=== PATIENT | male | born 1950 | race Caucasian/White ===

== ENCOUNTER 2017-12-18 08:00 | Outpatient (CLI) | payer MEDICARE, OTHER ==
[2017-12-18 13:41] LABS: BASOPHILS % (AUTO) 0.6 %; EOSINOPHILS # (AUTO) 0.2 10^3/uL (0.0-0.7); EOSINOPHILS % (AUTO) 4.2 %; HGB - HEMOGLOBIN 16.6 g/dL (14.0-18.0); LYMPHOCYTES # (AUTO) 1.2 10^3/uL (1.5-3.5); LYMPHOCYTES % (AUTO) 21.3 %; MEAN CORPUSCULAR HEMOGLOBIN 31.4 pg (27.0-31.0); MEAN CORPUSCULAR HGB CONC 33.7 g/dL (32.0-36.0); MEAN CORPUSCULAR VOLUME 93.2 fL (80.0-94.0); MONOCYTES # (AUTO) 0.6 10^3/uL (0.0-1.0); MONOCYTES % (AUTO) 9.7 %; NEUTROPHILS # (AUTO) 3.7 10^3/uL (1.5-6.6); NEUTROPHILS % (AUTO) 64.2 %; PLT - PLATELET COUNT 171 10^3/uL (130-450); RED BLOOD COUNT 5.28 10^6/uL (4.70-6.10); WHITE BLOOD COUNT 5.8 x10^3/uL (4.8-10.8)
[2017-12-18 14:09] LABS: ALBUMIN 4.3 g/dL (3.2-5.5); ALBUMIN/GLOBULIN RATIO 1.8 (1.0-2.2); ALKALINE PHOSPHATASE 80 IU/L (42-121); ALT ALANINE AMINOTRANSFERASE 35 IU/L (10-60); AST ASPARTATE AMINOTRANSFERASE 30 IU/L (10-42); BILIRUBIN,TOTAL 1.4 mg/dL (0.2-1.0); BUN - BLOOD UREA NITROGEN 24 mg/dL (6-20); CALCIUM 9.1 mg/dL (8.5-10.3); CARBON DIOXIDE - CO2 29 mmol/L (21-32); CHLORIDE 104 mmol/L (101-111); CHOL/HDL RATIO 3.6 (<5.0); CHOLESTEROL 171 mg/dL; CREATININE 1.2 mg/dL (0.6-1.2); GFR - MDRD 60 (>89); GLUCOSE 101 mg/dL (70-100); HDL CHOLESTEROL 47 mg/dL; LDL CHOLESTEROL,CALCULATED 98 mg/dL; LDL/HDL RATIO 2.1 (<3.6); SODIUM 138 mmol/L (135-145); TOTAL PROTEIN 6.7 g/dL (6.7-8.2); VLDL CHOLESTEROL 26 mg/dL
[2017-12-19 11:21] LABS: HEPATITIS C ANTIBODY NON-REACTIVE (NON-REACTIVE)
== END 2017-12-18 08:01 | disposition home or self-care (01) ==
LOC: LAB.WCP 08:00
PROVIDERS: ATTEND Family Medicine
DX: I10 Essential (primary) hypertension (principal); Z12.5 Encounter for screening for malignant neoplasm of prostate; E78.5 Hyperlipidemia, unspecified; Z79.899 Other long term (current) drug therapy
CPT/HCPCS: 36415; 80053; 80061; 84443; 85025; 86803; G0103; 83721; 84153

== ENCOUNTER 2018-09-23 10:20 | Outpatient (CLI) | payer MEDICARE, OTHER ==
[2018-09-23 19:00] LABS: BASOPHILS % (AUTO) 0.4 %; EOSINOPHILS # (AUTO) 0.2 10^3/uL (0.0-0.7); EOSINOPHILS % (AUTO) 1.8 %; HGB - HEMOGLOBIN 16.5 g/dL (14.0-18.0); LYMPHOCYTES # (AUTO) 1.6 10^3/uL (1.5-3.5); LYMPHOCYTES % (AUTO) 15.8 %; MEAN CORPUSCULAR HEMOGLOBIN 31.4 pg (27.0-31.0); MEAN CORPUSCULAR HGB CONC 32.6 g/dL (32.0-36.0); MEAN CORPUSCULAR VOLUME 96.4 fL (80.0-94.0); MONOCYTES # (AUTO) 0.7 10^3/uL (0.0-1.0); MONOCYTES % (AUTO) 7.2 %; NEUTROPHILS # (AUTO) 7.6 10^3/uL (1.5-6.6); NEUTROPHILS % (AUTO) 74.8 %; PLT - PLATELET COUNT 197 10^3/uL (130-450); RED BLOOD COUNT 5.26 10^6/uL (4.70-6.10); RED CELL DISTRIBUTION WIDTH 13.2 % (12.0-15.0); WHITE BLOOD COUNT 10.2 x10^3/uL (4.8-10.8)
[2018-09-23 19:18] LABS: ALBUMIN 4.3 g/dL (3.2-5.5); ALBUMIN/GLOBULIN RATIO 1.8 (1.0-2.2); ALKALINE PHOSPHATASE 83 IU/L (42-121); ALT ALANINE AMINOTRANSFERASE 30 IU/L (10-60); AST ASPARTATE AMINOTRANSFERASE 29 IU/L (10-42); BILIRUBIN,TOTAL 1.6 mg/dL (0.2-1.0); BUN - BLOOD UREA NITROGEN 21 mg/dL (6-20); CALCIUM 9.3 mg/dL (8.5-10.3); CARBON DIOXIDE - CO2 29 mmol/L (21-32); CHLORIDE 102 mmol/L (101-111); CHOL/HDL RATIO 3.2 (<5.0); CHOLESTEROL 179 mg/dL; CREATININE 1.2 mg/dL (0.6-1.2); GFR - MDRD 60 (>89); GLUCOSE 96 mg/dL (70-100); HDL CHOLESTEROL 56 mg/dL; LDL CHOLESTEROL,CALCULATED 85 mg/dL; LDL/HDL RATIO 1.5 (<3.6); SODIUM 138 mmol/L (135-145); TOTAL PROTEIN 6.7 g/dL (6.7-8.2); VLDL CHOLESTEROL 38 mg/dL
== END 2018-09-23 10:21 | disposition home or self-care (01) ==
LOC: LAB.WCP 10:20
PROVIDERS: ATTEND Family Medicine
DX: R94.5 Abnormal results of liver function studies (principal); E78.5 Hyperlipidemia, unspecified; Z79.899 Other long term (current) drug therapy
CPT/HCPCS: 36415; 80053; 80061; 83721; 85025

== ENCOUNTER 2018-09-30 11:29 | Outpatient (CLI) | payer MEDICARE, OTHER ==
--- NOTE | 2018-09-30 14:56 | XRAY Report ---
Reason: SHOULDER IMPINGMENT SYNDROME Procedure Date: 09/30/2018 Accession Number: [id number] / [id number] Procedure: WCP - Shoulder 3 View BILAT CPT Code: FULL RESULT: Bilateral Shoulder Radiography EXAM DATE: 09/30/2018 11:44 AM. CLINICAL HISTORY: SHOULDER IMPINGEMENT SYNDROME. COMPARISON: None. TECHNIQUE: 3 views each. FINDINGS: Right: Bones: No fracture or bone lesion. Joints: There are moderate degenerative changes of the acromioclavicular joint with moderate under spurring of the acromioclavicular articulations. There are large collar osteophytes of the humeral head. The glenohumeral joint space is not well imaged. Soft tissues: The visualized hemithorax is unremarkable. No soft tissue swelling. Left: Bones: No fracture or bone lesion. Joints: There are moderate degenerative changes of the acromioclavicular joint with moderate under spurring of the acromioclavicular articulations. There are large collar osteophytes of the humeral head. The clinical humeral joint space is not well imaged. Soft tissues: The visualized hemithorax is unremarkable. No soft tissue swelling. IMPRESSION: 1. Right shoulder moderate to severe glenohumeral osteoarthritis. Moderate acromioclavicular arthrosis. Moderate under spurring of the AC joint articulations may cause impingement symptoms. Correlate clinically. 2. Left shoulder moderate to severe glenohumeral osteoarthritis. Moderate acromioclavicular arthrosis. Moderate under spurring of the AC joint articulations may cause impingement symptoms. Correlate clinically. RADIA
== END 2018-09-30 11:30 | disposition home or self-care (01) ==
LOC: DI.WCP 11:29
PROVIDERS: ATTEND Family Medicine
DX: M19.011 Primary osteoarthritis, right shoulder (principal); M19.012 Primary osteoarthritis, left shoulder

== ENCOUNTER 2018-12-17 12:00 | Outpatient (CLI) | payer MEDICARE, OTHER ==
[2018-12-17] MEDS ORDERED: BUFFERED LIDOCAINE 10 ML SYRINGE ONE (12:52)
[2018-12-17] MEDS ORDERED: IOTHALAMATE MEGLUMINE 50 ML VIAL ONE (12:52)
[2018-12-17] MEDS ORDERED: GADOPENTETATE DIMEGLUMINE 5 ML VIAL IVP ONE (12:52)
[2018-12-17] MEDS ORDERED: IOTHALAMATE MEGLUMINE 50 ML VIAL IVP ONE (16:24)
[2018-12-17] MEDS ORDERED: BUFFERED LIDOCAINE 10 ML SYRINGE IU ONE (16:24)
--- NOTE | 2018-12-18 09:55 | XRAY Report ---
Reason: DEGENERATIVE JOINT DISEASE OF LEFT SHOULDER Procedure Date: 12/17/2018 Accession Number: [id number] / [id number] Procedure: FL - Arthrogram Needle Placement CPT Code: FULL RESULT: EXAM: LEFT SHOULDER ARTHROGRAPHIC INJECTION WITH FLUOROSCOPIC GUIDANCE EXAM DATE: 12/17/2018 01:20 PM. CLINICAL HISTORY: Left shoulder pain and grating sensation COMPARISON: 09/30/2018 plain films TECHNIQUE: The risks, benefits, and alternatives of the procedure were discussed with the patient. All questions were answered. Written and verbal consent were obtained. The left glenohumeral joint was marked under fluoroscopy and prepped and draped in a sterile manner. Local anesthesia was performed with 1% lidocaine. A 22-gauge needle was then inserted into the glenohumeral joint. 10 mL of a solution containing 1% lidocaine, iodinated contrast, and gadolinium contrast was then injected. The needle was removed without immediate complication. Other: None. Fluoroscopy Time: 45 seconds. Number of Images: 2. FINDINGS: Bones and joints: No fracture or subluxation. Moderately advanced degenerative change similar to 09/30/2018. Injection: Fluoroscopic images demonstrate needle placement and contrast in the glenohumeral joint. No contrast extravasation outside of the glenohumeral joint. IMPRESSION: Successful fluoroscopically guided arthrographic injection of the left shoulder. RADIA
--- NOTE | 2018-12-18 11:10 | MRI Report ---
Reason: DEGENERATIVE JOINT DISEASE OF LEFT SHOULDER Procedure Date: 12/17/2018 Accession Number: [id number] / [id number] Procedure: MRI - Arthrogram Shoulder LT CPT Code: FULL RESULT: EXAM: LEFT SHOULDER MRI ARTHROGRAM WITH CONTRAST EXAM DATE: 12/17/2018 02:14 PM. CLINICAL HISTORY: Shoulder pain. COMPARISON: None. TECHNIQUE: Multiplanar, multisequence T1-weighted and fluid-sensitive sequences of the shoulder after an arthrographic injection of dilute gadolinium, dictated under a separate exam. Other: None. FINDINGS: Acromioclavicular Region: The acromion is type II. AC joint is moderate to severely arthritic. The coracoacromial and coracoclavicular ligaments are intact. There is no contrast or fluid in the subacromial/subdeltoid bursa. Glenohumeral Region: No subluxation. No loose bodies. Only a small amount of remaining articular cartilage is seen at the superior most aspect of the glenohumeral joint. Joint surfaces are dysplastic, broadened and there is a large marginal osteophyte arising from the inferior medial aspect of the humeral head. The glenohumeral ligaments and joint capsule are unremarkable. Bone Marrow: There is a small cystic structure seen in the superolateral aspect of the humeral head, thought to be degenerative. Also noted is some marrow edema at the large osteophyte at the humeral head inferiorly. Labrum: Full-thickness tear anterior inferior labrum. Series 501 image 10. Biceps Tendon: The long head of the biceps tendon and biceps matt are intact. Musculature/Rotator Cuff: Minimal tendinopathy of the supraspinatus and infraspinatus portion of the rotator cuff, tendon is slightly thickened and shows some increased T2 signal. No edema or fatty atrophy. Other: The subcutaneous tissues are unremarkable. IMPRESSION: 1. AC joint is moderate to severely arthritic. 2. Broad regions of cartilaginous loss at the inferior two-thirds of the glenohumeral joint, dysplastic broadening, large marginal osteophytosis. Kellgren Carlos grade 4 changes. 3. Small cystic structure superolateral aspect of the humeral head, thought to be degenerative. 4. Full-thickness tear anterior inferior labrum. 5. Minimal tendinopathy of the supraspinatus and infraspinatus portion of the rotator cuff. RADIA
== END 2018-12-17 12:01 | disposition home or self-care (01) ==
LOC: DI 12:00
PROVIDERS: ATTEND Orthopaedic Surgery Sports Medicine
DX: M19.012 Primary osteoarthritis, left shoulder (principal); S43.492A Other sprain of left shoulder joint, initial encounter; M75.92 Shoulder lesion, unspecified, left shoulder
CPT/HCPCS: 23350; 73222; 77002; Q9961

== ENCOUNTER → 2019-04-08 | Outpatient (CLI) | payer MEDICARE, OTHER ==
--- NOTE | 2019-04-09 09:49 | XRAY Report ---
Reason: DDD LUMBAR SPINE Procedure Date: 04/08/2019 Accession Number: [id number] / [id number] Procedure: WCP - Lumbar Spine 2 View CPT Code: FULL RESULT: EXAM: LUMBOSACRAL SPINE RADIOGRAPHY EXAM DATE: 04/08/2019 01:41 PM. CLINICAL HISTORY: DDD LUMBAR SPINE. COMPARISONS: None. TECHNIQUE: 3 views. FINDINGS: Alignment: No spondylolisthesis or scoliosis. Bones: Five [id number]-byhawni lumbar vertebral bodies are present. No fractures or bone lesions. Disks: There is multilevel moderate to severe degenerative disk disease in the lower thoracic spine through the lumbar spine, predominately at L4-L5 and L5-S1. Facets: Mild/moderate hypertrophic degenerative changes at L4-L5 and L5-S1. Sacroiliac Joints: Unremarkable. Soft Tissues: The visualized bowel gas pattern is normal. Other: Status post bilateral hip total replacement is visualized, unremarkable. Status post cholecystectomy is noted. There is a small to moderate amount of stool in the colon and the rectum without small bowel dilatation, suggesting constipation. IMPRESSION: Multilevel moderate to severe degenerative disk disease in the lower thoracic spine through the lumbar spine, predominately at L4-L5 and L5-S1 with facet joint hypertrophy. RADIA
== END ==
LOC: DI.WCP 13:12 → EDSTATUS 13:16
PROVIDERS: ATTEND Family Medicine
DX: M51.36 Other intervertebral disc degeneration, lumbar region (principal); M51.34 Other intervertebral disc degeneration, thoracic region; M51.37 Other intervertebral disc degeneration, lumbosacral region; M47.816 Spondylosis without myelopathy or radiculopathy, lumbar region; M47.817 Spondylosis without myelopathy or radiculopathy, lumbosacral region
CPT/HCPCS: 72100

== ENCOUNTER 2019-05-01 09:54 | Outpatient (CLI) | payer MEDICARE, OTHER ==
[2019-05-01 12:37] LABS: BASOPHILS # (AUTO) 0.1 10^3/uL (0.0-0.1); BASOPHILS % (AUTO) 0.6 %; EOSINOPHILS # (AUTO) 0.3 10^3/uL (0.0-0.7); EOSINOPHILS % (AUTO) 3.7 %; HGB - HEMOGLOBIN 16.6 g/dL (14.0-18.0); LYMPHOCYTES # (AUTO) 1.2 10^3/uL (1.5-3.5); LYMPHOCYTES % (AUTO) 14.8 %; MEAN CORPUSCULAR HGB CONC 33.5 g/dL (32.0-36.0); MEAN CORPUSCULAR VOLUME 95.4 fL (80.0-94.0); MEAN PLATELET VOLUME 9.7 fL (7.4-11.4); MONOCYTES # (AUTO) 0.7 10^3/uL (0.0-1.0); MONOCYTES % (AUTO) 8.4 %; NEUTROPHILS # (AUTO) 5.6 10^3/uL (1.5-6.6); NEUTROPHILS % (AUTO) 71.9 %; PLT - PLATELET COUNT 196 10^3/uL (130-450); RED BLOOD COUNT 5.19 10^6/uL (4.70-6.10); RED CELL DISTRIBUTION WIDTH 12.6 % (12.0-15.0); WHITE BLOOD COUNT 7.8 x10^3/uL (4.8-10.8)
[2019-05-01 13:05] LABS: ALBUMIN 4.2 g/dL (3.2-5.5); ALBUMIN/GLOBULIN RATIO 1.8 (1.0-2.2); ALKALINE PHOSPHATASE 77 IU/L (42-121); ALT ALANINE AMINOTRANSFERASE 31 IU/L (10-60); AST ASPARTATE AMINOTRANSFERASE 27 IU/L (10-42); BILIRUBIN,TOTAL 1.4 mg/dL (0.2-1.0); BUN - BLOOD UREA NITROGEN 22 mg/dL (6-20); CALCIUM 9.6 mg/dL (8.5-10.3); CARBON DIOXIDE - CO2 30 mmol/L (21-32); CHLORIDE 104 mmol/L (101-111); CHOL/HDL RATIO 3.9 (<5.0); CHOLESTEROL 183 mg/dL; CREATININE 1.2 mg/dL (0.6-1.2); GFR - MDRD 60 (>89); GLUCOSE 107 mg/dL (70-100); HDL CHOLESTEROL 47 mg/dL; LDL CHOLESTEROL,CALCULATED 98 mg/dL; LDL/HDL RATIO 2.1 (<3.6); SODIUM 140 mmol/L (135-145); TOTAL PROTEIN 6.6 g/dL (6.7-8.2); VLDL CHOLESTEROL 38 mg/dL
== END 2019-05-01 23:59 | disposition home or self-care (01) ==
LOC: LAB.WCP 09:54
PROVIDERS: ATTEND Physician Assistant Medical
DX: E78.5 Hyperlipidemia, unspecified (principal); I10 Essential (primary) hypertension
CPT/HCPCS: 36415; 80053; 80061; 83721; 85025

== ENCOUNTER 2020-08-01 10:11 | Outpatient (CLI) | payer MEDICARE, OTHER ==
[2020-08-01 12:36] LABS: BASOPHILS % (AUTO) 0.5 %; EOSINOPHILS # (AUTO) 0.2 10^3/uL (0.0-0.7); EOSINOPHILS % (AUTO) 2.8 %; HGB - HEMOGLOBIN 16.7 g/dL (14.0-18.0); LYMPHOCYTES # (AUTO) 1.4 10^3/uL (1.5-3.5); LYMPHOCYTES % (AUTO) 17.1 %; MEAN CORPUSCULAR HEMOGLOBIN 31.5 pg (27.0-31.0); MEAN CORPUSCULAR HGB CONC 33.2 g/dL (32.0-36.0); MEAN CORPUSCULAR VOLUME 94.7 fL (80.0-94.0); MEAN PLATELET VOLUME 9.6 fL (7.4-11.4); MONOCYTES # (AUTO) 0.6 10^3/uL (0.0-1.0); MONOCYTES % (AUTO) 7.4 %; NEUTROPHILS # (AUTO) 5.9 10^3/uL (1.5-6.6); NEUTROPHILS % (AUTO) 71.8 %; PLT - PLATELET COUNT 213 10^3/uL (130-450); RED BLOOD COUNT 5.31 10^6/uL (4.70-6.10); RED CELL DISTRIBUTION WIDTH 12.4 % (12.0-15.0); WHITE BLOOD COUNT 8.1 x10^3/uL (4.8-10.8)
[2020-08-01 13:10] LABS: ALBUMIN 4.4 g/dL (3.2-5.5); ALBUMIN/GLOBULIN RATIO 1.8 (1.0-2.2); ALKALINE PHOSPHATASE 78 IU/L (42-121); ALT ALANINE AMINOTRANSFERASE 30 IU/L (10-60); AST ASPARTATE AMINOTRANSFERASE 25 IU/L (10-42); BILIRUBIN,TOTAL 1.2 mg/dL (0.2-1.0); BUN - BLOOD UREA NITROGEN 27 mg/dL (6-20); CALCIUM 9.4 mg/dL (8.5-10.3); CARBON DIOXIDE - CO2 28 mmol/L (21-32); CHLORIDE 102 mmol/L (101-111); CHOL/HDL RATIO 3.7 (<5.0); CHOLESTEROL 195 mg/dL; CREATININE 1.2 mg/dL (0.6-1.2); GLUCOSE 102 mg/dL (70-100); HDL CHOLESTEROL 53 mg/dL; LDL CHOLESTEROL,CALCULATED 108 mg/dL; SODIUM 140 mmol/L (135-145); TOTAL PROTEIN 6.9 g/dL (6.7-8.2); VLDL CHOLESTEROL 34 mg/dL
== END 2020-08-01 23:59 | disposition home or self-care (01) ==
LOC: LAB.WCP 10:11
PROVIDERS: ATTEND Physician Assistant Medical
DX: E78.5 Hyperlipidemia, unspecified (principal); I10 Essential (primary) hypertension
CPT/HCPCS: 36415; 80053; 80061; 83721; 85025

== ENCOUNTER 2021-04-04 08:00 | Outpatient (CLI) | payer MEDICARE, OTHER | END 2021-04-04 23:59 | disposition home or self-care (01) | LOC: LAB.WCP 08:00 | PROVIDERS: ATTEND Physician Assistant Medical | DX: Z53.9 Procedure and treatment not carried out, unspecified reason (principal) ==

== ENCOUNTER 2021-04-13 08:00 | Outpatient (CLI) | payer MEDICARE, OTHER ==
[2021-04-13 18:26] LABS: BASOPHILS # (AUTO) 0.1 10^3/uL (0.0-0.1); BASOPHILS % (AUTO) 0.7 %; EOSINOPHILS # (AUTO) 0.4 10^3/uL (0.0-0.7); EOSINOPHILS % (AUTO) 5.2 %; HCT - HEMATOCRIT 48.3 % (42.0-52.0); HGB - HEMOGLOBIN 16.7 g/dL (14.0-18.0); LYMPHOCYTES # (AUTO) 1.4 10^3/uL (1.5-3.5); LYMPHOCYTES % (AUTO) 16.1 %; MEAN CORPUSCULAR HEMOGLOBIN 32.1 pg (27.0-31.0); MEAN CORPUSCULAR HGB CONC 34.6 g/dL (32.0-36.0); MEAN CORPUSCULAR VOLUME 92.9 fL (80.0-94.0); MEAN PLATELET VOLUME 10.3 fL (7.4-11.4); MONOCYTES # (AUTO) 0.7 10^3/uL (0.0-1.0); MONOCYTES % (AUTO) 8.7 %; NEUTROPHILS # (AUTO) 5.8 10^3/uL (1.5-6.6); NEUTROPHILS % (AUTO) 68.9 %; PLT - PLATELET COUNT 253 10^3/uL (130-450); RED CELL DISTRIBUTION WIDTH 13.6 % (12.0-15.0); WHITE BLOOD COUNT 8.4 x10^3/uL (4.8-10.8)
[2021-04-13 18:28] LABS: ALBUMIN 4.2 g/dL (3.2-5.5); ALBUMIN/GLOBULIN RATIO 1.6 (1.0-2.2); BILIRUBIN,TOTAL 1.1 mg/dL (0.2-1.0); CALCIUM 9.3 mg/dL (8.5-10.3); CREATININE 1.1 mg/dL (0.6-1.2); POTASSIUM 3.7 mmol/L (3.5-5.0); TOTAL PROTEIN 6.9 g/dL (6.7-8.2)
== END 2021-04-13 23:59 | disposition home or self-care (01) ==
LOC: LAB.WCP 08:00
PROVIDERS: ATTEND Physician Assistant Medical
DX: I10 Essential (primary) hypertension (principal)
CPT/HCPCS: 36415; 80053; 85025

== ENCOUNTER 2021-07-24 09:32 | Outpatient (CLI) | payer MEDICARE, OTHER ==
[2021-07-24 13:06] LABS: BASOPHILS # (AUTO) 0.1 10^3/uL (0.0-0.1); BASOPHILS % (AUTO) 0.9 %; EOSINOPHILS # (AUTO) 0.3 10^3/uL (0.0-0.7); EOSINOPHILS % (AUTO) 3.9 %; HGB - HEMOGLOBIN 13.7 g/dL (14.0-18.0); LYMPHOCYTES # (AUTO) 1.5 10^3/uL (1.5-3.5); LYMPHOCYTES % (AUTO) 23.3 %; MEAN CORPUSCULAR HEMOGLOBIN 28.4 pg (27.0-31.0); MEAN CORPUSCULAR HGB CONC 31.9 g/dL (32.0-36.0); MEAN CORPUSCULAR VOLUME 89.2 fL (80.0-94.0); MEAN PLATELET VOLUME 9.4 fL (7.4-11.4); MONOCYTES # (AUTO) 0.6 10^3/uL (0.0-1.0); MONOCYTES % (AUTO) 9.3 %; NEUTROPHILS % (AUTO) 62.3 %; PLT - PLATELET COUNT 272 10^3/uL (130-450); RED BLOOD COUNT 4.82 10^6/uL (4.70-6.10); RED CELL DISTRIBUTION WIDTH 13.4 % (12.0-15.0); WHITE BLOOD COUNT 6.4 x10^3/uL (4.8-10.8)
[2021-07-24 13:30] LABS: ALBUMIN 4.2 g/dL (3.2-5.5); ALBUMIN/GLOBULIN RATIO 1.7 (1.0-2.2); BILIRUBIN,TOTAL 0.8 mg/dL (0.2-1.0); CALCIUM 9.3 mg/dL (8.5-10.3); CREATININE 1.1 mg/dL (0.6-1.2); TOTAL PROTEIN 6.7 g/dL (6.7-8.2)
== END 2021-07-24 09:33 | disposition home or self-care (01) ==
LOC: LAB.N 09:32
PROVIDERS: ATTEND Physician Assistant Medical
DX: I10 Essential (primary) hypertension (principal); J31.0 Chronic rhinitis
CPT/HCPCS: 36415; 80053; 85025

== ENCOUNTER 2022-08-14 09:00 | Outpatient (CLI) | payer MEDICARE, OTHER ==
[2022-08-14 13:46] LABS: ALBUMIN 4.4 g/dL (3.2-5.5); ALBUMIN/GLOBULIN RATIO 1.8 (1.0-2.2); ALKALINE PHOSPHATASE 90 IU/L (42-121); ALT ALANINE AMINOTRANSFERASE 21 IU/L (10-60); AST ASPARTATE AMINOTRANSFERASE 22 IU/L (10-42); BILIRUBIN,TOTAL 0.8 mg/dL (0.2-1.0); BUN - BLOOD UREA NITROGEN 25 mg/dL (6-20); CALCIUM 9.4 mg/dL (8.5-10.3); CARBON DIOXIDE - CO2 28 mmol/L (21-32); CHLORIDE 103 mmol/L (101-111); CHOL/HDL RATIO 3.9 (<5.0); CHOLESTEROL 181 mg/dL; CREATININE 1.2 mg/dL (0.6-1.2); GFR - MDRD 60 (>89); GLUCOSE 101 mg/dL (70-100); HDL CHOLESTEROL 47 mg/dL; LDL CHOLESTEROL,CALCULATED 99 mg/dL; LDL/HDL RATIO 2.1 (<3.6); POTASSIUM 3.8 mmol/L (3.5-5.0); SODIUM 139 mmol/L (135-145); TOTAL PROTEIN 6.9 g/dL (6.7-8.2); TRIGLYCERIDES 177 mg/dL; VLDL CHOLESTEROL 35 mg/dL
== END 2022-08-14 09:01 | disposition home or self-care (01) ==
LOC: LAB.N 09:00
PROVIDERS: ATTEND Physician Assistant Medical
DX: E78.5 Hyperlipidemia, unspecified (principal)
CPT/HCPCS: 36415; 80053; 80061; 83721

== ENCOUNTER 2022-12-26 12:58 | Day surgery (SDC) | payer MEDICARE, OTHER ==
--- NOTE | 2022-12-26 13:18 | ANESTHESIA ---
Pre-Anesthesia VS, & Labs - Diagnosis screening - Procedure colonoscopy Height: 5 ft 10 in - NPO >8 hours Last Fluid Intake: am prep - Lab Results Lab results reviewed: Yes Home Medications and Allergies Home Medications: Ambulatory Orders Acetaminophen [Tylenol] 1 tab PO PRN PRN 12/25/22 Atorvastatin [Lipitor] 1 tab PO DAILY 12/25/22 Ezetimibe [Zetia] 1 tab PO DAILY 12/25/22 Gabapentin [Neurontin] 1 cap PO DAILY 12/25/22 Loratadine [Claritin] 1 cap PO DAILY 12/25/22 amLODIPine [Norvasc] 1 tab PO DAILY 12/25/22 Ezetimibe/Simvastatin [Vytorin 10-40 mg Tablet] 1 tab PO DAILY 07/27/14 Loratadine 10 mg PO DAILY 07/27/14 hydroCHLOROthiazide [Hydrochlorothiazide] 25 mg PO DAILY 07/27/14 Acetaminophen [Tylenol] 1 tab PO PRN PRN 12/25/22 Atorvastatin [Lipitor] 1 tab PO DAILY 12/25/22 Ezetimibe [Zetia] 1 tab PO DAILY 12/25/22 Gabapentin [Neurontin] 1 cap PO DAILY 12/25/22 Loratadine [Claritin] 1 cap PO DAILY 12/25/22 amLODIPine [Norvasc] 1 tab PO DAILY 12/25/22 Allergies/Adverse Reactions: Allergies Allergy/AdvReac Type Severity Reaction Status Date / Time ampicillin Allergy Hives Verified 12/25/22 11:51 Anes History & Medical History - Anesthetic History Anesthesia Complications: reports: Difficult airway (difficult mask vent, glidescope used for intubation in lap effie years ago) Family history of Anesthesia Complications: Denies Family history of Malignant Hyperthermia: Denies - Medical History Cardiovascular: reports: Hypertension, High cholesterol Pulmonary: reports: Sleep apnea Gastrointestinal: reports: None Urinary: reports: Retention, Kidney stones Musculoskeletal: reports: Osteoarthritis Endocrine/Autoimmune: reports: None Skin: reports: Herpes zoster Smoking Status: Never smoker - Surgical History General: reports: Appendectomy, Bowel surgery Orthopedic: reports: Hip replacement, Shoulder arthroplasty Exam General: Alert, Oriented x3, Cooperative Dental: WNL Mouth Openin Fingerbreadth Neck Mobility: Normal Mallampati classification: II Thyromental Distance: 4-6 cm Respiratory: Lungs clear, Normal breath sounds, No respiratory distress Cardiovascular: Regular rate Neurological: Normal speech Mental/Cognitive Status: Alert/Oriented X3, Normal for patient Cognitive Status: Within normal limits Plan Anesthesia Type: Total IV Consent for Procedure(s) Verified and Reviewed: Yes Code Status: Attempt Resuscitation ASA classification: 2-Mild systemic disease Is this case an emergency?: No
[2022-12-26] MEDS: LACTATED RINGERS 1,000 ML IV ONE (13:32)
[2022-12-26] MEDS ORDERED: PROPOFOL 500 MG/50 ML 500 MG/50 ML VIAL ONE (13:44)
[2022-12-26] MEDS: LACTATED RINGERS 550 ML IV ONE (14:35)
[2022-12-26 15:17] VITALS: BP 118/75
--- NOTE | 2022-12-28 12:20 | ANESTHESIA POST OP EVALUATION ---
Anesthesia Post Eval - Post Anesthesia Eval Vitals: Last Vital Signs Temp 37.1 C 12/26/22 15:15 Pulse 75 12/26/22 15:15 Resp 16 12/26/22 15:15 BP 118/75 12/26/22 15:15 Pulse Ox 99 12/26/22 15:15 O2 Flow Rate CV Function Including HR & BP: Stable Pain Control: Satisfactory Nausea & Vomiting: Negative Mental Status: Baseline Respiratory Status: Airway Patent Hydration Status: Satisfactory Anesthesia Complications: None
== END 2022-12-26 12:59 | disposition home or self-care (01) ==
LOC: SDS 12:58
PROVIDERS: ATTEND Surgery
PROC: 0DBL8ZZ Excision of Transverse Colon, Via Natural or Artificial Opening Endoscopic (ICD-10-PCS; 2022-12-26)
PROC: 0DBN8ZZ Excision of Sigmoid Colon, Via Natural or Artificial Opening Endoscopic (ICD-10-PCS; principal; 2022-12-26 14:15)
DX: Z12.11 Encounter for screening for malignant neoplasm of colon (principal); D12.3 Benign neoplasm of transverse colon; D12.5 Benign neoplasm of sigmoid colon; K57.30 Diverticulosis of large intestine without perforation or abscess without bleeding; K64.1 Second degree hemorrhoids; G47.30 Sleep apnea, unspecified
CPT/HCPCS: 45385; J7120

== ENCOUNTER 2023-02-20 11:42 | Outpatient (CLI) | payer MEDICARE, OTHER ==
--- NOTE | 2023-02-20 16:51 | XRAY Report ---
PROCEDURE: Chest 2 View X-Ray INDICATIONS: TB EXPOSURE TECHNIQUE: 2 views of the chest were acquired. COMPARISON: None. FINDINGS: Surgical changes and devices: None. Lungs and pleura: No pleural effusions or pneumothorax. Lungs are clear. Mediastinum: Mediastinal contours appear normal. Heart size is normal. Bones and chest wall: No suspicious bony lesions. Overlying soft tissues appear unremarkable. IMPRESSION: No acute cardiopulmonary process. Reviewed by: Jose Dukes on 02/20/2023 4:50 PM PDT Approved by: Jose Dukes on 02/20/2023 4:50 PM PDT Station ID: [id number]
== END 2023-02-20 11:43 | disposition home or self-care (01) ==
LOC: DI.N 11:42
PROVIDERS: ATTEND Physician Assistant Medical
DX: Z20.1 Contact with and (suspected) exposure to tuberculosis (principal)

== ENCOUNTER 2023-03-22 07:28 | Outpatient (CLI) | payer MEDICARE, OTHER ==
[2023-03-22 13:21] LABS: ALBUMIN 4.7 g/dL (3.2-5.5); ALBUMIN/GLOBULIN RATIO 1.8 (1.0-2.2); ALKALINE PHOSPHATASE 88 IU/L (42-121); ALT ALANINE AMINOTRANSFERASE 21 IU/L (10-60); AST ASPARTATE AMINOTRANSFERASE 22 IU/L (10-42); BILIRUBIN,TOTAL 0.9 mg/dL (0.2-1.0); BUN - BLOOD UREA NITROGEN 22 mg/dL (6-20); CALCIUM 9.7 mg/dL (8.5-10.3); CARBON DIOXIDE - CO2 28 mmol/L (21-32); CHLORIDE 103 mmol/L (101-111); CHOL/HDL RATIO 3.6 (<5.0); CHOLESTEROL 196 mg/dL; CREATININE 1.4 mg/dL (0.6-1.3); GFR - MDRD 50 (>89); GLUCOSE 97 mg/dL (74-104); HDL CHOLESTEROL 55 mg/dL; LDL CHOLESTEROL,CALCULATED 96 mg/dL; LDL/HDL RATIO 1.7 (<3.6); POTASSIUM 3.8 mmol/L (3.5-4.5); SODIUM 137 mmol/L (135-145); TOTAL PROTEIN 7.3 g/dL (6.4-8.9); TRIGLYCERIDES 226 mg/dL (48-352); VLDL CHOLESTEROL 45 mg/dL
== END 2023-03-22 07:29 | disposition home or self-care (01) ==
LOC: LAB.N 07:28
PROVIDERS: ATTEND Physician Assistant Medical
DX: E78.5 Hyperlipidemia, unspecified (principal)
CPT/HCPCS: 36415; 80053; 80061; 83721

== ENCOUNTER 2023-05-22 07:48 | Outpatient (CLI) | payer MEDICARE, OTHER ==
[2023-05-22 12:16] LABS: CALCIUM 9.4 mg/dL (8.5-10.3); CREATININE 1.2 mg/dL (0.6-1.3); POTASSIUM 4.2 mmol/L (3.5-4.5)
== END 2023-05-22 07:49 | disposition home or self-care (01) ==
LOC: LAB.N 07:48
PROVIDERS: ATTEND Physician Assistant Medical
DX: I10 Essential (primary) hypertension (principal)
CPT/HCPCS: 36415; 80048

== ENCOUNTER 2023-06-20 09:48 | Outpatient (CLI) | payer MEDICARE, OTHER ==
--- NOTE | 2023-06-20 10:38 | XRAY Report ---
PROCEDURE: Chest 2 View X-Ray INDICATIONS: ACUTE LOWER RESPIRATORY TRACT INFECTION TECHNIQUE: 2 views of the chest were acquired. COMPARISON: 02/20/2023. FINDINGS: Surgical changes and devices: There is prior bilateral shoulder arthroplasty. Lungs and pleura: No pleural effusions or pneumothorax. Lungs are clear. Mediastinum: Mediastinal contours appear normal. Heart size is normal. Bones and chest wall: No suspicious bony lesions. Overlying soft tissues appear unremarkable. IMPRESSION: No acute cardiopulmonary process. Reviewed by: Juan Burt MD on 06/20/2023 10:37 AM PDT Approved by: Juan Burt MD on 06/20/2023 10:37 AM PDT Station ID: [id number]
== END 2023-06-20 09:49 | disposition home or self-care (01) ==
LOC: DI 09:48
PROVIDERS: ATTEND Physician Assistant Medical
DX: J06.9 Acute upper respiratory infection, unspecified (principal)

== ENCOUNTER 2023-07-23 07:24 | Day surgery (SDC) | payer MEDICARE, OTHER ==
[~2023-07-23 07:24] MED LIST: BUPIVACAINE 0.5%-EPI 1:200000 PF 30 ML VIAL ONE
[2023-07-23] MEDS ORDERED: ceFAZolin 2 GM VIAL ONE (07:32)
[2023-07-23] MEDS ORDERED: LACTATED RINGERS 1,000 ML IV ONE ×2 (08:07→10:08)
[2023-07-23] MEDS ORDERED: MORPHINE 2 MG/ML CARPUJECT IVP PRN (08:25)
[2023-07-23] MEDS ORDERED: HYDROmorphone 0.5 MG/0.5 ML SYRINGE IVP PRN ×2 (08:25→10:14)
[2023-07-23] MEDS ORDERED: METOCLOPRAMIDE 10 MG/2 ML VIAL IVP PRN (08:25)
[2023-07-23] MEDS ORDERED: ePHEDrine 50 MG/ML VIAL IVP PRN (08:25)
[2023-07-23] MEDS ORDERED: ONDANSETRON 4 MG/2 ML VIAL IVP PRN ×2 (08:25→10:14)
[2023-07-23] MEDS ORDERED: NALOXONE 0.4 MG/ML VIAL IVP PRN (08:25)
[2023-07-23] MEDS ORDERED: fentaNYL 100 MCG/2 ML VIAL IVP PRN (08:25)
[2023-07-23] MEDS ORDERED: ATROPINE ABBOJECT 1 MG/10 ML SYRINGE IVP PRN (08:25)
--- NOTE | 2023-07-23 08:25 | ANESTHESIA ---
Pre-Anesthesia VS, & Labs - Diagnosis R inguinal hernia - Procedure R inguinal hernia repair Vital Signs: Temp Pulse Resp BP Pulse Ox O2 Flow Rate 36.4 C L 68 18 131/76 H 95 07/23/23 07:53 07/23/23 07:53 07/23/23 07:53 07/23/23 07:53 07/23/23 07:53 Height: 5 ft 9.5 in Weight (kg): 88 kg Body Mass Index: 28.2 BMI Classification: Overweight - NPO >8 hours - Lab Results Lab results reviewed: Yes Home Medications and Allergies Home Medications: Ambulatory Orders Famotidine [Pepcid] 20 mg PO DAILY 07/22/23 Loratadine 10 mg PO DAILY 07/27/14 Acetaminophen [Tylenol] 1 tab PO PRN PRN 12/25/22 Atorvastatin [Lipitor] 1 tab PO DAILY 12/25/22 Ezetimibe [Zetia] 1 tab PO DAILY 12/25/22 Gabapentin [Neurontin] 1 cap PO DAILY 12/25/22 amLODIPine [Norvasc] 1 tab PO DAILY 12/25/22 Famotidine [Pepcid] 20 mg PO DAILY 07/22/23 Allergies/Adverse Reactions: Allergies Allergy/AdvReac Type Severity Reaction Status Date / Time ampicillin Allergy Hives Verified 12/25/22 11:51 Anes History & Medical History - Anesthetic History Anesthesia Complications: reports: No previous complications Family history of Anesthesia Complications: Denies Family history of Malignant Hyperthermia: Denies - Medical History Cardiovascular: reports: Hypertension, High cholesterol Pulmonary: reports: Sleep apnea Gastrointestinal: reports: GERD Urinary: reports: Kidney stones Musculoskeletal: reports: Osteoarthritis Endocrine/Autoimmune: reports: None Skin: reports: Rosacea Smoking Status: Never smoker - Surgical History General: reports: Cholecystectomy, Appendectomy, Bowel surgery, Colonoscopy Eyes Ears Nose Throat (EENT): reports: Tonsil/Adenoidectomy Urologic: reports: Testicular surgery Orthopedic: reports: Hip replacement, Shoulder arthroplasty Exam General: Alert, Oriented x3, Cooperative Dental: WNL Mouth Openin Fingerbreadth Neck Mobility: Normal Mallampati classification: II (history difficult mask, glidescope to grade 2 view) Respiratory: Lungs clear, Normal breath sounds, No respiratory distress Cardiovascular: Regular rate Abdomen: Normal bowel sounds Neurological: Normal speech Mental/Cognitive Status: Alert/Oriented X3, Normal for patient Plan Anesthesia Type: General Consent for Procedure(s) Verified and Reviewed: Yes Code Status: Attempt Resuscitation ASA classification: 2-Mild systemic disease Is this case an emergency?: No
[2023-07-23] MEDS ORDERED: LIDOCAINE-PF 2% 10 ML AMP SUBQ ONE (08:29)
[2023-07-23] MEDS ORDERED: PROPOFOL 200 MG/20 ML VIAL IVP ONE (08:29)
[2023-07-23] MEDS ORDERED: MIDAZOLAM 2 MG/2 ML VIAL ONE (08:29)
[2023-07-23] MEDS ORDERED: ONDANSETRON 4 MG/2 ML VIAL ONE (08:52)
[2023-07-23] MEDS ORDERED: DEXAMETHASONE 4 MG/ML VIAL ONE (08:52)
[2023-07-23] MEDS ORDERED: BUPIVACAINE 0.5%-EPI 1:200000 PF 30 ML VIAL SUBQ ONE (08:58)
[2023-07-23] MEDS ORDERED: ePHEDrine 50 MG/ML VIAL IVP ONE (08:59)
[2023-07-23] MEDS ORDERED: LACTATED RINGERS 1,000 ML IV SCH (09:00)
[2023-07-23] MEDS ORDERED: fentaNYL 100 MCG/2 ML VIAL ONE (09:29)
[2023-07-23] MEDS ORDERED: KETOROLAC 30 MG/ML VIAL ONE (09:52)
--- NOTE | 2023-07-23 10:05 | OPERATIVE REPORT ---
Operative Report - General Procedure Date: 07/23/23 Planned Procedure: RIGHT inguinal herniorrhaphy Pre-Op Diagnosis: RIGHT inguinal hernia Procedure Performed: RIGHT direct inguinal herniorrhaphy with mesh Post Op Diagnosis: RIGHT direct inguinal hernia (absence of floor) - Procedure Note Primary Surgeon: Sergio Mo MD Anesthesia Provider: Isidoro Huitron CRNA Anesthesia Technique: General LMA, Local (30 mL of half percent Marcaine with epinephrine) IV Fluids (mL): 1,000 Estimated Blood Loss (mL): 5 Drain/Tube Type: Other (None.) Indications: Increasingly symptomatic RIGHT inguinal hernia Findings: RIGHT direct inguinal herniaabsence of floor. Complications: None. - Other Other Information/Narrative: After verbal and written informed consent was obtained detailing the operation, the alternatives the operation including no operation, risks of infection, bleeding requiring transfusion with its risks, nerve injury, and and after I met with the patient confirming the surgery and the site of surgery, the patient was brought to the operative suite and placed supine on the operating table. Great care was taken to avoid pressure points to prevent pressure necrosis or nerve injury. Monitoring devices were applied along with TEDs and pneumatic compression stockings (to prevent DVT). The patient received preopera tive antibiotics for surgical prophylaxis. Isidoro Huitron CRNA sedated and anesthetized the patient for the entire procedure. The patient was prepped and draped in the usual sterile manner. With the patient draped my initials were clearly visible. A "time in" then confirmed that the patient was identified with 3 identifiers (name, date, and medical record number), the history and physical was updated and in the chart, the signed consent confirming the procedure was in the chart, the patient was in the correct position, the aforementioned prophylactic measures were in place or given, we had the correct personnel and equipment to complete the procedure and that anesthesia and the surgical team were given an opportunity to express any concerns. With the agreement of everyone in the room we proceeded with the operation. A standard inguinal incision was made and dissection was carried down to the external oblique aponeurosis using a combination of Metzenbaum scissors and Bovie electrocautery. The external oblique aponeurosis was cleared of overlying adherent tissue, and the external ring was delineated. The external oblique was incised with a scalpel and this incision was carried down to the external ring using Metzenbaum scissors. Care was taken not to injure the ilioinguinal nerve. Having expose the inguinal canal, the cord structures were from the canal using blunt dissection and a Okabena drain was placed around the cord structures at the level of the pubic tubercle. This Mayra drain was then used to retract the cord structures as needed. Adherent cremasteric muscle was dissected free from the cord using Bovie electrocautery. The cord was then explored using a combination of sharp and blunt dissection, and no sac was found. The hernia was found coming through the nonexistent floor the inguinal canal medial to the inferior epigastric vessels. This was dissected back to the hernia opening. The hernia was inverted back into the abdominal cavity and an extra-large PerFix plug inserted into the hernia defect. The plug was secured to the edge of the hernia defect using interrupted 2-0 PDS sutures. This permitted the floor of the inguinal canal to be repaired without the hernia in my way. The PerFix onlay patch was then secured to the pubic tubercle with an 0-PDS U stitches. The superior aspect of the mesh was secured to the conjoined tendon using interrupted 0 PDS sutures whereas the inferior edge was secured to the shelving edge of Poupart's ligament with interrupted 0 PDS sutures. The mesh was secured around the cord structures loosely thus creating a new internal ring. The Bard PerFix mesh had a lot number of [id number], use by date 2027-10-16, and reference #[id number]. The Okabena drain was then removed. The wound was irrigated using sterile saline, and hemostasis was obtained using Bovie electrocautery. The incision the external oblique was approximated using 3-0 Vicryl in a running fashion thus reforming the external ring. The wound was then injected using half percent Marcaine with epinephrine at the fascial level, subcutaneous level, and skin level for long-term anesthetic control. The skin incision was approximated with 4-0 Monocryl in a subcuticular fashion. The skin was cleaned of its prep and Dermabond was applied. At this point a timeout was performed that confirmed that all counts were correct x2, the procedure that was performed, the blood loss, the IV fluids administered, the patient's condition, and any concerns of the operating team had. Having tolerated the procedure well, the patient was taken recovery room in good and stable condition. Gentle downward traction ensured the testes were well seated in the scrotum. The plan is for outpatient discharge when the patient is adeq uately recovered. CPT 34062 This document was created in part using voice recognition technology. Because of the inherent limitations of the system, occasional same sounding word substitutions and grammatical errors do occur and persist despite proofreading. Please read this document for content.
[2023-07-23] MEDS ORDERED: HYDROcod/ACETAM 5/325 MG TABLET PO PRN (10:14)
[2023-07-23] MEDS ORDERED: HYDROcod/ACETAM 5/325 MG TABLET ONE (10:44)
[2023-07-23 11:02] VITALS: BP 137/78; O2SAT 96
--- NOTE | 2023-07-23 11:19 | ANESTHESIA POST OP EVALUATION ---
Anesthesia Post Eval - Post Anesthesia Eval Vitals: Last Vital Signs Temp 36.5 C 07/23/23 10:35 Pulse 87 07/23/23 10:58 Resp 14 07/23/23 10:58 BP 137/78 H 07/23/23 10:58 Pulse Ox 96 07/23/23 10:58 O2 Flow Rate CV Function Including HR & BP: Stable Pain Control: Satisfactory Nausea & Vomiting: Negative Mental Status: Baseline Respiratory Status: Airway Patent Hydration Status: Satisfactory Anesthesia Complications: None
== END 2023-07-23 07:25 | disposition home or self-care (01) ==
LOC: SDS 07:24
PROVIDERS: ATTEND Surgery
DX: K40.90 Unilateral inguinal hernia, without obstruction or gangrene, not specified as recurrent (principal); G47.30 Sleep apnea, unspecified; I10 Essential (primary) hypertension
CPT/HCPCS: 49505; A9270; C1781; J7120

== ENCOUNTER 2023-11-29 11:40 | Outpatient (CLI) | payer MEDICARE, OTHER ==
[2023-11-29 18:16] LABS: BASOPHILS % (AUTO) 0.4 %; EOSINOPHILS # (AUTO) 0.2 10^3/uL (0.0-0.7); EOSINOPHILS % (AUTO) 2.1 %; HCT - HEMATOCRIT 50.4 % (42.0-52.0); HGB - HEMOGLOBIN 15.9 g/dL (14.0-18.0); LYMPHOCYTES # (AUTO) 1.5 10^3/uL (1.5-3.5); LYMPHOCYTES % (AUTO) 20.7 %; MEAN CORPUSCULAR HEMOGLOBIN 30.5 pg (27.0-31.0); MEAN CORPUSCULAR HGB CONC 31.5 g/dL (32.0-36.0); MEAN CORPUSCULAR VOLUME 96.7 fL (80.0-94.0); MEAN PLATELET VOLUME 9.8 fL (7.4-11.4); MONOCYTES # (AUTO) 0.6 10^3/uL (0.0-1.0); MONOCYTES % (AUTO) 8.6 %; NEUTROPHILS # (AUTO) 4.9 10^3/uL (1.5-6.6); NEUTROPHILS % (AUTO) 67.8 %; PLT - PLATELET COUNT 217 10^3/uL (130-450); RED BLOOD COUNT 5.21 10^6/uL (4.70-6.10); RED CELL DISTRIBUTION WIDTH 13.4 % (12.0-15.0); WHITE BLOOD COUNT 7.2 x10^3/uL (4.8-10.8)
[2023-11-29 18:30] LABS: ALBUMIN 4.3 g/dL (3.2-5.5); ALBUMIN/GLOBULIN RATIO 1.9 (1.0-2.2); ALKALINE PHOSPHATASE 88 IU/L (42-121); ALT ALANINE AMINOTRANSFERASE 23 IU/L (10-60); AST ASPARTATE AMINOTRANSFERASE 26 IU/L (10-42); BILIRUBIN,TOTAL 1.1 mg/dL (0.2-1.0); BUN - BLOOD UREA NITROGEN 23 mg/dL (6-20); CALCIUM 9.9 mg/dL (8.5-10.3); CARBON DIOXIDE - CO2 27 mmol/L (21-32); CHLORIDE 105 mmol/L (101-111); CHOL/HDL RATIO 3.6 (<5.0); CHOLESTEROL 189 mg/dL; CREATININE 1.2 mg/dL (0.6-1.3); GFR - MDRD 59 (>89); GLUCOSE 84 mg/dL (74-104); HDL CHOLESTEROL 53 mg/dL; LDL CHOLESTEROL,CALCULATED 102 mg/dL; LDL/HDL RATIO 1.9 (<3.6); POTASSIUM 4.6 mmol/L (3.5-4.5); SODIUM 138 mmol/L (135-145); TOTAL PROTEIN 6.6 g/dL (6.4-8.9); TRIGLYCERIDES 168 mg/dL (48-352); VLDL CHOLESTEROL 34 mg/dL
== END 2023-11-29 11:41 | disposition home or self-care (01) ==
LOC: LAB.N 11:40
PROVIDERS: ATTEND Physician Assistant Medical
DX: E78.5 Hyperlipidemia, unspecified (principal); I10 Essential (primary) hypertension; N48.6 Induration penis plastica
CPT/HCPCS: 36415; 80053; 80061; 83721; 84403; 85025

== ENCOUNTER 2024-03-04 12:57 | Outpatient (CLI) | payer MEDICARE, OTHER | END 2024-03-04 12:58 | disposition home or self-care (01) | LOC: LAB.N 12:57 | PROVIDERS: ATTEND Physician Assistant Medical | DX: Z12.5 Encounter for screening for malignant neoplasm of prostate (principal) | CPT/HCPCS: 36415; G0103; 84153 ==